=== PATIENT | female | born 1955 | race Caucasian/White ===

== ENCOUNTER 2021-06-26 09:29 | Day surgery (SDC) | payer OTHER, SELFPAY ==
[~2021-06-26] VITALS: Ht 160 cm; Wt 83.5 kg
[2021-06-26] MEDS ORDERED: fentaNYL citrate 0.05 MG/ML VIAL ONE (10:54)
[2021-06-26] MEDS ORDERED: MIDAZOLAM 5 MG/5 ML VIAL ONE (10:54)
[2021-06-26] MEDS ORDERED: LIDOCAINE 2% 100 MG/5 ML UJET TP ONE (11:28)
[2021-06-26] MEDS ORDERED: MIDAZOLAM 2 MG/2 ML VIAL IVP ONE (12:30)
[2021-06-26] MEDS ORDERED: fentaNYL citrate 0.05 MG/ML VIAL IVP ONE (12:30)
== END 2021-06-26 12:44 | disposition home or self-care (01) ==
LOC: MDS 09:29 → MMU 09:29 → MDS 12:44
PROVIDERS: ATTEND Internal Medicine Gastroenterology
DX: Z12.11 Encounter for screening for malignant neoplasm of colon (principal); R10.13 Epigastric pain; R94.5 Abnormal results of liver function studies; K57.30 Diverticulosis of large intestine without perforation or abscess without bleeding; I10 Essential (primary) hypertension; E11.9 Type 2 diabetes mellitus without complications; E78.5 Hyperlipidemia, unspecified; Z20.822 Contact with and (suspected) exposure to COVID-19; Z79.899 Other long term (current) drug therapy
CPT/HCPCS: 36415; 43239; 45378; 86677; 87426; J2250; J3010